=== PATIENT | female | born 1960 | race Hispanic/Latino ===

== ENCOUNTER → 2017-12-27 | Outpatient (CLI) | payer BC ==
--- NOTE | 2017-12-27 14:42 | Diagnostic Imaging Report ---
EXAM: CT Abdomen and Pelvis WITHOUT contrast INDICATION: Abdominal pain COMPARISON: None. TECHNIQUE: Abdomen and pelvis were scanned utilizing a multidetector helical scanner from the lung base to the pubic symphysis without administration of IV contrast. Absence of intravenous contrast decreases sensitivity for detection of focal lesions and vascular pathology. Coronal and sagittal reformations were obtained. Routine protocol was performed. IV CONTRAST: None. ORAL CONTRAST: Water RADIATION DOSE: Total DLP: 636.9 mGy*cm Estimated effective dose: (DLP x 0.015 x size factor) mSv COMPLICATIONS: None FINDINGS: LOWER THORAX: Unremarkable HEPATOBILIARY: No focal hepatic lesions. No biliary ductal dilation. GALLBLADDER: Status post cholecystectomy. SPLEEN: No splenomegaly. PANCREAS: No focal masses or ductal dilatation. ADRENALS: No adrenal nodules KIDNEYS/URETERS: No hydronephrosis. No cystic or solid mass lesions. No stones. GI TRACT: A laparoscopic gastric band is present in satisfactory position. There is dilatation of the distal esophagus which is circumferentially mildly thick walled and partially filled with fluid. No evidence of bowel obstruction. Appendix is normal. Small bowel anastomosis is noted in the mid abdomen. PELVIC ORGANS/BLADDER: Bilateral phleboliths are present. LYMPH NODES: No lymphadenopathy. VESSELS: Scattered atherosclerotic calcifications. PERITONEUM / RETROPERITONEUM: No free air or fluid. BONES: No acute bony findings. IMPRESSION: Gastric lap band in expected position. Distal esophageal distension which is partially fluid filled with associated mild wall thickening. Findings may represent esophagitis. Distension may reflect a component of obstruction or an esophageal motility issue. Signed by: Dr. Lauren Knox MD on 12/27/2017 2:39 PM
== END ==
LOC: CT 13:17
PROVIDERS: ATTEND Family Medicine
DX: R10.9 Unspecified abdominal pain (principal)
CPT/HCPCS: 74176

== ENCOUNTER → 2018-05-01 | Day surgery (SDC) | payer BC ==
[~2018-05-01] MED LIST: FENTANYL CITRATE/PF 100MCG/2 ML INJ ONE; HYOSCYAMINE SULFATE 0.5 MG/ML INJ ONE; IRBESARTAN150 MG PO; METOCLOPRAMIDE HCL 10 MG/2ML VIAL ONE; MIDAZOLAM HCL 2 MG/2 ML VIAL ONE; PROPOFOL IV EMULSION 10 MG/ML 50 ML VIAL ONE; VITAMIN D31000 UNIT PO
--- OUTSIDE RECORDS SUMMARY | 2018-05-01 11:14 | XMS REPORT ---
[facility] Address Unknown Phone Unavailable Care Team Providers Care Bag Inspector Name Role Phone HUNTER GRANDE Unavailable Unavailable Problems This patient has no known problems. Allergies, Adverse Reactions, Alerts This patient has no known allergies or adverse reactions. Medications This patient has no known medications. Results Test Description Test Time Test Comments Text Results Atomic Results Result Comments CT ABDOMEN/PELVIS WO 2017-12-27 14:16:00 [place] [address] Patient Name: ZITA ANGEL MR #: [id number] : 1960 Age/Sex: 57/F Req #: [id number] Adm Physician: Ordered by: HUNTER GRANDE MD Report #: [id number] Location: CT Room/Bed: Procedure: [id number] CT/CT ABDOMEN/PELVIS WO Exam Date: Exam Time: REPORT STATUS: Signed EXAM: CT Abdomen and Pelvis WITHOUT contrast INDICATION: Abdominal pain COMPARISON: None. TECHNIQUE: Abdomen and pelvis were scanned utilizing a multidetector helical scanner from the lung base to the pubic symphysis without administration of IV contrast. Absence of intravenous contrast decreases sensitivity for detection of focal lesions and vascular pathology. Coronal and sagittal reformations were obtained. Routine protocol was performed. IV CONTRAST: None. ORAL CONTRAST: Water RADIATION DOSE: Total DLP: 636.9 mGy*cm Estimated effective dose: (DLP x 0.015 x size factor) mSv COMPLICATIONS: None FINDINGS: LOWER THORAX: Unremarkable HEPATOBILIARY: No focal hepatic lesions. No biliary ductal dilation. GALLBLADDER: Status post cholecystectomy. SPLEEN: No splenomegaly. PANCREAS: No focal masses or ductal dilatation. ADRENALS: No adrenal nodules KIDNEYS/URETERS: No hydronephrosis. No cystic or solid mass lesions. No ston es. GI TRACT: A laparoscopic gastric band is present in satisfactory position. There is dilatation of the distal esophagus which is circumferentially mildly thick walled and partially filled with fluid. No evidence of bowel obstruction. Appendix is normal. Small bowel anastomosis is noted in the mid abdomen. PELVIC ORGANS/BLADDER: Bilateral phleboliths are present. LYMPH NODES: No lymphadenopathy. VESSELS: Scattered atherosclerotic calcifications. PERITONEUM / RETROPERITONEUM: No free air or fluid. BONES: No acute bony findings. IMPRESSION: Gastric lap b and in expected position. Distal esophageal distension which is partially fluid filled with associated mild wall thickening. Findings may represent esophagitis. Distension may reflect a component of obstruction or an esophageal motility issue. Signed by: Dr. Felicia Hester MD on 12/27/2017 2:39 PM Dictated By: FELICIA HESTER MD [id number] Transcribed By: PAULETTE on 12/27/17 1439 COPY TO: HUNTER GRANDE MD
[2018-05-01 14:50] VITALS: BP 120/81
--- NOTE | 2018-05-01 23:06 | Operative Report ---
DATE OF PROCEDURE: 05/01/2018 SURGEON: Wayne Silva MD PROCEDURES: 1. EGD with biopsies and esophageal dilatation. 2. Colonoscopy with polypectomy. INDICATIONS FOR EGD: History of heartburn/indigestion, dysphagia. INDICATIONS FOR COLONOSCOPY: Colorectal cancer screening. MEDICATIONS: The patient was done under MAC. Please see anesthesiologist's note. PROCEDURE IN DETAIL: With the patient in the left lateral decubitus position, a flexible fiberoptic Olympus gastroscope was introduced into the esophagus under direct visualization without any difficulty. Some erosions were noted in the distal esophagus without active bleeding. The scope was then advanced into the stomach and mucosa overlying the antrum and the body revealed some patchy erythema and low-grade to moderate edema and biopsies were obtained and sent to stain for H pylori. Pylorus was of normal contour and shape, was intubated with ease and the scope was advanced all the way to the second portion of the duodenum. The scope was then withdrawn slowly and biopsies were obtained from the proximal second portion and the duodenal bulb. The scope was then withdrawn back into the stomach and retroflexed and an intact lap band was noted. The scope was then straightened out, it was subsequently withdrawn. The patient tolerated the procedure well. The esophagus was then dilated to size 52-[place]. IMPRESSION: 1. Distal erosive esophagitis. 2. Esophagus dilated to size 52-[place] Vas[place]. 3. Lap band intact. 4. Gastritis biopsied, biopsies sent to stain for Helicobacter pylori. 5. Rule out sprue. PLAN: Follow up histology. Increase Protonix to 40 mg one p.o. a.c. b.i.d. The patient was then turned around. After adequate lubrication of the anal canal, a flexible fiberoptic Olympus colonoscope was inserted into the rectum with ease and advanced all the way to the cecum. The scope was then withdrawn slowly. Mucosa overlying the cecum, ascending colon, transverse colon, descending colon appeared to be within normal limits. Three minute polyps were hot biopsied from the sigmoid colon and additional 3 minute polyps were hot biopsied from the rectum. The scope was then retroflexed into the distal rectum and small internal hemorrhoids were noted, none of which was actively bleeding. The scope was then straightened out. It was subsequently withdrawn. The patient tolerated the procedure well. IMPRESSION: 1. Sigmoid colon polyps x3, hot biopsied. 2. Rectal polyps x3, hot biopsied. 3. Internal hemorrhoids, none actively bleeding. PLAN: Follow up histology. Initiate high-fiber, low-fat diet. Initiate high-fiber supplement. The patient might benefit from a followup colonoscopy in 3 years. Wayne Silva MD [facility] [place]/MOD[place] /[id number] cc: Ziggy Quiñonez MD
== END | disposition home or self-care (01) ==
LOC: OR 11:11
PROVIDERS: ATTEND Internal Medicine Gastroenterology
DX: Z12.11 Encounter for screening for malignant neoplasm of colon (principal); R13.10 Dysphagia, unspecified; R12 Heartburn; K22.10 Ulcer of esophagus without bleeding; K22.8 Other specified diseases of esophagus; K63.5 Polyp of colon; K62.1 Rectal polyp; K64.8 Other hemorrhoids; Z88.5 Allergy status to narcotic agent; K21.9 Gastro-esophageal reflux disease without esophagitis; I10 Essential (primary) hypertension; Z98.84 Bariatric surgery status; K22.2 Esophageal obstruction; K29.80 Duodenitis without bleeding; K29.50 Unspecified chronic gastritis without bleeding; B96.81 Helicobacter pylori [H. pylori] as the cause of diseases classified elsewhere
CPT/HCPCS: 43239; 43450; 45384; 93005; J1980; J2250; J2704; J2765; 45378